=== PATIENT | female | born 1975 | race Caucasian/White ===

== ENCOUNTER → 2023-04-19 | Outpatient (CLI) | payer OTHER ==
--- NOTE | 2023-04-22 16:16 | MM ---
Reason for Exam: Screening (asymptomatic). Last mammogram was performed 14 year(s) and 10 month(s) ago. Patient History: Menarche at age 12. First Full-Term at age 25. Premenopausal. Hormonal Contraceptives for 2 years from age 21 until age 23. 1989, Bilateral Reduction. Risk Values: Aidee 5 year model risk: 1.0%. NCI Lifetime model risk: 10.2%. Prior Study Comparison: No prior studies available for comparison. Tissue Density: There are scattered fibroglandular densities. Findings: Analyzed By CAD. Nodular focal asymmetry noted upper-outer quadrant right breast posterior depth for which further evaluation is recommended. No priors are available for comparison purposes. Bilateral postreduction mammoplasty changes are present. Otherwise, no suspicious microcalcification or other discrete abnormality is seen. Overall Assessment: Incomplete: need additional imaging evaluation, BI-RAD 0 Management: Special View Mammogram of the right breast. Diagnostic Breast Ultrasound of the right breast. Additional views to include spot 3-D CC, spot 3-D MLO, and 3-D lateral views. Subsequent right upper outer quadrant ultrasound. [facility] will attempt to contact patient to return for supplemental views and ultrasound if indicated. Electronically signed and approved by: Sunil Dailey M.D. Radiologist
== END | disposition home or self-care (01) ==
LOC: RADMAMWWP 13:28
PROVIDERS: ATTEND Obstetrics & Gynecology
DX: Z12.31 Encounter for screening mammogram for malignant neoplasm of breast (principal)
CPT/HCPCS: 77067

== ENCOUNTER → 2023-05-02 | Outpatient (CLI) | payer OTHER ==
--- NOTE | 2023-05-02 14:06 | MM ---
Reason for Exam: Additional evaluation requested from abnormal screening. Last screening mammogram was performed less than 1 month ago. Patient History: Menarche at age 12. First Full-Term at age 25. Premenopausal. Hormonal Contraceptives for 2 years from age 21 until age 23. 1989, Bilateral Reduction. Risk Values: Aidee 5 year model risk: 1.0%. NCI Lifetime model risk: 10.2%. Prior Study Comparison: 06/08/2008 Bilateral Diagnostic Mammogram, [facility]. 04/19/2023 Bilateral MG screening mammo w CAD, [facility]. Tissue Density: Right: There are scattered fibroglandular densities. Findings: Analyzed By CAD. There remains scattered nodular parenchymal densities on the lateral aspect of the right breast on CC view which is possibly posterior nipple line on LM view and upper aspect of the right LMO view. Overall Assessment: Incomplete: need additional imaging evaluation, BI-RAD 0 Management: Diagnostic Breast Ultrasound of the right breast. Results were given to the patient verbally at the time of exam. Patient should continue monthly self-breast exams. A clinical breast exam by your physician is recommended on an annual basis. This exam should not preclude additional follow-up of suspicious palpable abnormalities. Note on Aidee scores and lifetime risk: 1. A Aidee score greater than 3% is considered moderate risk. If this is the case, consider specialist referral to assess eligibility for a risk reducing agent. 2. If overall lifetime risk for the development of breast cancer is 20% or higher, the patient may qualify for future screening with alternating mammogram and breast MRI. Electronically signed and approved by: Julio César Duran DO
--- NOTE | 2023-05-02 14:16 | USB ---
Reason for Exam: Additional evaluation requested from abnormal screening. Patient History: Menarche at age 12. First Full-Term at age 25. Premenopausal. Hormonal Contraceptives for 2 years from age 21 until age 23. 1989, Bilateral Reduction. Risk Values: Aidee 5 year model risk: 1.0%. NCI Lifetime model risk: 10.2%. Technique: Method: Targeted. Prior Study Comparison: 06/08/2008 Bilateral Diagnostic Mammogram, [facility]. 04/19/2023 Bilateral MG screening mammo w CAD, [facility]. Findings: The lateral section of the breast of the right breast, the axilla of the right breast and the retroareolar of the right breast were scanned. Technique utilized:US breast workup limited RT Image; Ultrasound imaging of: Area of concern, retroareolar region and axilla. No evidence for organizing fluid collection or mass. Overall Assessment: Negative, BI-RAD 1 Management: Screening Mammogram of both breasts in 1 year. A clinical breast exam by your physician is recommended on an annual basis and results should be correlated with mammographic findings. This exam should not preclude additional follow-up of suspicious palpable abnormalities. Results were given to the patient verbally at the time of exam. Electronically signed and approved by: Julio César Duran DO
== END | disposition home or self-care (01) ==
LOC: RADMAMWWP 13:27
PROVIDERS: ATTEND Obstetrics & Gynecology
DX: R92.321 Mammographic fibroglandular density, right breast (principal)
CPT/HCPCS: 77061; 77065